=== PATIENT | male | born 1945 | race Two or more races ===

== ENCOUNTER 2018-06-29 19:58 | Inpatient (IN) | payer MEDICARE ==
[~2018-06-29] VITALS: Ht 170.2 cm; Wt 56.2 kg
[2018-06-29 20:30] VITALS: BP 148/85
[2018-06-29] MEDS ORDERED: ACETAMINOPHEN 325 MG TABLET PO PRN (20:30)
[2018-06-29] MEDS ORDERED: MAGNESIUM HYDROXIDE 30 ML UDC PO PRN (20:30)
[2018-06-29] MEDS ORDERED: MAG HYDROX/AL HYDROX/SIMETH 30 ML UDC PO PRN (20:30)
--- NOTE | 2018-06-29 20:30 | NUR ---
GPS ADMISSION NOTE, RECEIVED PATIENT FROM [facility]. PATIENT ARRIVED ON THIS UNIT AT 2030 VIA STRETCHER WITH 1 HOSPICE COMMUNITY LIAISON ESCORT. PATIENT ADMITTED VOLUNTARY. UPON FACE TO FACE ASSESSMENT PATIENT IS CURRENTLY LYING IN BED AWAKE, HAS NO S/S OR COMPLAINTS OF PAIN. PATIENT IS DISPLAYING NO S/S OF APPARENT DISTRESS. PATIENT BREATHING IS UNLABORED WITH EQUAL RISE AND FALL OF THE CHEST. PATIENT IS ALERT AND ORIENTATED X 3 ON ROOM AIR. PATIENT ASSISTED WITH TURING AND REPOSITIONING Q2HR AND PRN FOR COMFORT AND CIRCULATION. PATIENT HAS NO NEEDS AT THIS TIME. PATIENT IS NOTED TO BEING ANXIOUS, DISHEVELED, DISORGANIZED, COOPERATIVE, AND NEEDS REDIRECTION. PATIENT DENIES SUICIDE IDEATIONS AND HOMICIDAL IDEATIONS AT THIS TIME. PATIENT IS UNDER THE PSYCHIATRIC CARE OF DR. CASTAÑEDA AND THE MEDICAL CARE OF DR MEDRANO. PATIENT BELONGINGS WERE INVENTORIED AND CHECKED FOR CONTRABAND. ALL CONTRABAND REMOVED AND STORED IN PATIENT HALLWAY LOCKER. PATIENT ADVANCED DIRECTIVES PREFERENCE, IMMUNIZATIONS QUESTIONER, NECESSARY PAPERWORK, AND SKIN ASSESSMENT COMPLETED. PATIENT ORIENTATED TO ROOM, FLOOR, AND STAFF WITH ALL QUESTIONS ANSWERED. PATIENT EDUCATED ON THE USE OF THE CALL GUIDRY. PATIENT BED SIDE RAILS ARE UP X 2 FOR SAFETY. PATIENT BED IS LOCKED, LOW AND I WILL CONTINUE TO MONITOR THIS PATIENT Q 15 MIN WITH THE HELP OF STAFF TO MAINTAIN SAFETY.
[2018-06-29] MEDS ORDERED: LORA10TA7 PO (20:55)
[2018-06-29] MEDS ORDERED: AMLO5TAB9 PO (20:55)
[2018-06-29] MEDS ORDERED: OLAN5TAB3 PO (20:56)
[2018-06-29] MEDS ORDERED: HYDR-4384 PO (20:57)
[2018-06-29] MEDS ORDERED: ATOR40TA PO (20:58)
[2018-06-29] MEDS ORDERED: TRAZ-182 PO (20:58)
[2018-06-29] MEDS: HYDROCODONE/APAP 5/325MG 1 EACH TABLET PO PRN (22:16)
--- NOTE | 2018-06-29 22:16 | NUR ---
GPS RN NOTE, PATIENT HAS A COMPLAINT OF CHRONIC RIGHT HIP PAIN AT 4 OUT 10 ON THE PAIN SCALE AND IS REQUESTING NORCO AT THIS TIME. PATIENT VITAL SIGNS ARE STABLE. GAVE NORCO 5-325 1 TAB PO Q6HR PRN ORDERED. WILL REASSESS PAIN AND I WILL CONTINUE TO MONITOR THIS PATIENT.
[2018-06-30] MEDS: TEMAZEPAM 7.5 MG CAPSULE PO PRN (00:31)
--- NOTE | 2018-06-30 00:31 | NUR ---
GPS RN NOTE, PATIENT HAS A COMPLAINT OF NOT BEING ABLE TO SLEEP AND IS REQUESTING RESTORIL AT THIS TIME. PATIENT VTAL SIGNS ARE STABLE. GAVE RESTORIL 7.5MG PO HS PRN ORDERED. WILL REASSESS FOR INSOMNIA AND I WILL CONTINUE TOMONITOR THIS PATIENT.
[2018-06-30] MEDS ORDERED: Z GUARD REMEDY 2 OZ OINT TP PRN (03:00)
[2018-06-30] MEDS: LORAZEPAM 0.5 MG TABLET PO PRN (03:39)
--- NOTE | 2018-06-30 03:39 | NUR ---
GPS RN NOTE, PATIENT HAS A COMPLAINT OF FEELING ANXIOUS AND IS REQUESTING ATIVAN AT THIS TIME. PATIENT VITAL SIGNS ARE STABLE. GAVE ATIVAN 0.5MG PO Q6HR PRN ORDERED. WILL REASSESS FOR ANXIETY AND I WILL CONTINUE TO MONITOR THIS PATIENT.
[2018-06-30] MEDS ORDERED: POLY50DR OP (07:06)
[2018-06-30 07:11] LABS: BASOPHILS % (AUTO) 0.3 % (0.0-2.0); EOSINOPHILS % (AUTO) 3.3 % (0.0-6.0); HEMATOCRIT 43 % (39-51); LYMPHOCYTES # (AUTO) 1.6 /CMM (0.8-4.8); LYMPHOCYTES % (AUTO) 18.4 % (20.0-44.0); MEAN CORPUSCULAR HGB CONC 33 g/dl (31.0-36.0); MEAN CORPUSCULAR VOLUME 93 fL (80-96); MONOCYTES # (AUTO) 0.7 /CMM (0.1-1.30); MONOCYTES % (AUTO) 8.4 % (2.0-12.0); NEUTROPHILS % (AUTO) 69.6 % (43.0-81.0); PLATELET COUNT (AUTO) 207 /CMM (150-450); RED BLOOD CELL COUNT(AUTO) 4.54 MIL/uL (4.5-6.0); WHITE BLOOD COUNT (AUTO) 8.7 K/uL (4.3-11.0)
[2018-06-30 07:26] LABS: CALCIUM, SERUM 9.1 mg/dL (8.5-10.1); CARBON DIOXIDE 27 mmol/L (21-32); CHLORIDE 102 mmol/L (98-107); CREATININE 0.9 mg/dL (0.6-1.3); GLUCOSE 88 mg/dL (74-106); POTASSIUM 4.4 mmol/L (3.5-5.1); SODIUM SERUM 138 mmol/L (136-145); UREA NITROGEN, BLOOD 22 mg/dL (7-18)
[2018-06-30 07:29] LABS: CHOLESTEROL 173 mg/dL (<200); HDL CHOLESTEROL 66 mg/dL (40-60); LDL 104 mg/dL (0-99); TRIGLYCERIDES 45 mg/dL (30-150)
[2018-06-30 07:37] LABS: ALANINE AMINOTRANSFERASE 22 U/L (12-78); ALBUMIN 3.9 g/dL (3.4-5.0); ALKALINE PHOSPHATASE 75 U/L (46-116); ASPARTATE AMINOTRANSFERASE 19 U/L (15-37); BILIRUBIN,TOTAL 0.5 mg/dL (0.2-1.0); TOTAL PROTEIN, SERUM 7.8 g/dL (6.4-8.2)
[2018-06-30 08:00] VITALS: BP 143/85
[2018-06-30] MEDS: AMLODIPINE BESYLATE 5 MG TABLET PO SCH (08:42)
[2018-06-30] MEDS: NICOTINE PATCH (14MG) 14 MG PATCH.TD24 TD SCH (08:47)
[2018-06-30] MEDS: HYDROCODONE/APAP 5/325MG 1 EACH TABLET PO PRN (13:56)
[2018-06-30 16:00] VITALS: BP 138/81
[2018-06-30] MEDS: ATORVASTATIN 40 MG TABLET PO SCH (17:40)
[2018-06-30 20:00] VITALS: BP 118/66
[2018-06-30] MEDS: OLANZAPINE 5 MG TABLET PO SCH (20:57)
[2018-06-30] MEDS: TRAZODONE 50 MG TABLET PO SCH (21:18)
[2018-07-01 08:00] VITALS: BP 121/69
[2018-07-01 08:07] LABS: BILIRUBIN,URINE NEGATIVE (NEGATIVE); BLOOD, URINE NEGATIVE Ery/uL (NEGATIVE); COLOR,URINE YELLOW (YELLOW); KETONES,URINE NEGATIVE (NEGATIVE); LEUKOCYTE ESTERASE ,URINE NEGATIVE (NEGATIVE); NITRITE, URINE NEGATIVE (NEGATIVE); PROTEIN,URINE NEGATIVE (NEGATIVE); UGLUCOSE NEGATIVE (NEGATIVE); UROBILINOGEN,URINE 0.2 EU/dL (0.2)
[2018-07-01 08:11] LABS: APPEARANCE,URINE CLEAR (CLEAR)
[2018-07-01] MEDS: NICOTINE PATCH (14MG) 14 MG PATCH.TD24 TD SCH (09:42)
[2018-07-01] MEDS: AMLODIPINE BESYLATE 5 MG TABLET PO SCH (09:42)
--- NOTE | 2018-07-01 09:45 | NUR ---
WOUND CARE CONSULT: PT PRESENTS WITH REDNESS TO DISTAL TOES AND DISCOLORATION TO GREAT TOENAILS, PRESENT ON ADMISSION. RECOMMEND DPM CONSULT. PT STATES HAS DISCOMFORT WITH TOES. PT ALSO STATES HAS ITCHING IN GROIN/PERINEAL AREAS. SLIGHT REDNESS NOTED. RECOMMENDATIONS MADE AND DISCUSSED WITH NURSING STAFF FOR ANTIFUNGAL CREAM. PT IS AMBULATORY AND CONTINENT. WILL SEE PRN. IN AGREEMENT WITH PLAN OF CARE.
--- NOTE | 2018-07-01 11:30 | NUR ---
WALKING ABOUT WANTING TO REPORT THIS PERSON AND THAT PERSON,WRITING DOWN ALL HIS COMPLAINTS.VS STABLE.
--- NOTE | 2018-07-01 12:36 | NUR ---
INITIAL DISCHARGE PLAN: Patient may need placement. SW will help form a safe and proper discharge in collaboration with MD.
[2018-07-01] MEDS ORDERED: MISCELLANEOUS MED 1 EA EA XX ONE (13:00)
--- NOTE | 2018-07-01 13:27 | NUR ---
SW attempted to contact pts sister Jayde [phone], SW left voicemail for call back.
--- NOTE | 2018-07-01 13:30 | NUR ---
DR. WEISS IN TO SEE PT.
[2018-07-01] MEDS: OLANZAPINE 2.5 MG TABLET PO SCH (13:32)
[2018-07-01] MEDS: DIVALPROEX SODIUM 125 MG TABLET.DR PO SCH ×2 (13:32→17:07)
[2018-07-01] MEDS: LORAZEPAM 0.5 MG TABLET PO PRN (14:43)
--- NOTE | 2018-07-01 14:51 | NUR ---
GIVEN ATIVAN FOR AGITATION AND ANXIETY,0.5 MG PO.
[2018-07-01 16:00] VITALS: BP 131/80
[2018-07-01] MEDS: CLOTRIMAZOLE 1% 15 GM TUBE TP SCH ×2 (16:50)
[2018-07-01] MEDS: ATORVASTATIN 40 MG TABLET PO SCH (17:07)
--- NOTE | 2018-07-01 19:30 | NUR ---
GPS RN NOTE, RECEIVED PATIENT AWAKE AND IN BED, NO S/S OR COMPLAINTS OF PAIN AT THIS TIME. PATIENT IS DISPLAYING NO S/S OF APPARENT DISTRESS AT THIS TIME. PATIENT BREATHING IS UNLABORED WITH EQUAL RISE AND FALL OF THE CHEST. PATIENT IS ALERT AND ORIENTED X 2 ON ROOM AIR WITH A SPO2 OF 95%. PATIENT HAS PATIENT IS COMPLIANT WITH MEDICATION, COOPERATIVE, CONFUSED AT TIMES, ANXIOUS, DISORGANIZED, PARANOID, AND NEEDS REDIRECTION. PATIENT DENIES SUICIDE IDEATIONS AND HOMICIDAL IDEATIONS AT THIS TIME. PATIENT ASSISTED WITH TURNING AND REPOSITIONING Q 2HRS AND PRN FOR COMFORT AND CIRCULATION. PATIENT HAS NO NEEDS AT THIS TIME. PATIENT EDUCATED ON THE USE OF THE CALL GUIDRY. PATIENT BED SIDE RAILS UP X 2 FOR SAFETY, BED IS LOCKED, LOW, AND I WILL CONTINUE TO MONITOR AND MAINTAIN SAFETY Q15 MIN WITH THE HELP OF STAFF.
[2018-07-01 20:00] VITALS: BP 135/63
[2018-07-01] MEDS: OLANZAPINE 5 MG TABLET PO SCH (20:07)
[2018-07-01] MEDS: TRAZODONE 50 MG TABLET PO SCH (21:36)
[2018-07-02 08:00] VITALS: BP 130/82
[2018-07-02] MEDS: OLANZAPINE 2.5 MG TABLET PO SCH ×2 (08:04→12:49)
[2018-07-02] MEDS: NICOTINE PATCH (14MG) 14 MG PATCH.TD24 TD SCH (08:04)
[2018-07-02] MEDS: DIVALPROEX SODIUM 125 MG TABLET.DR PO SCH ×3 (08:04→17:00)
[2018-07-02] MEDS: AMLODIPINE BESYLATE 5 MG TABLET PO SCH (08:05)
[2018-07-02] MEDS: CLOTRIMAZOLE 1% 15 GM TUBE TP SCH ×4 (08:06→17:00)
--- NOTE | 2018-07-02 15:57 | NUR ---
SW received a call from pts sister Jayde [phone] and informed SW that pt has been homeless for a couple years and also requested pt be placed a SNF. SW informed her that pt will be referred to a local SNF and sister agreed. Sister lives in [place] and stated pt has not family in [place].
[2018-07-02 16:00] VITALS: BP 123/74
[2018-07-02] MEDS: ATORVASTATIN 40 MG TABLET PO SCH (17:00)
[2018-07-02] MEDS: HYDROCODONE/APAP 5/325MG 1 EACH TABLET PO PRN (19:41)
--- NOTE | 2018-07-02 19:49 | NUR ---
GPS-RN NOTES PATIENT C/O PAIN ON HIS RIGHT FOOT, 12/24. ADMINISTERED NORCO 5/325MG PO ORDERED. WILL CONTINUE TO MONITOR MEDICATION FOR EFFECTIVENESS.
[2018-07-02 20:09] VITALS: BP 126/75
[2018-07-02] MEDS: OLANZAPINE 5 MG TABLET PO SCH (20:44)
[2018-07-02] MEDS: TRAZODONE 50 MG TABLET PO SCH (21:13)
[2018-07-03 07:36] LABS: CARBON DIOXIDE 27 mmol/L (21-32); CHLORIDE 101 mmol/L (98-107); CREATININE 0.7 mg/dL (0.6-1.3); GLUCOSE 82 mg/dL (74-106); POTASSIUM 4.3 mmol/L (3.5-5.1); SODIUM SERUM 134 mmol/L (136-145); UREA NITROGEN, BLOOD 22 mg/dL (7-18)
[2018-07-03 08:00] VITALS: BP 138/64
[2018-07-03] MEDS: DIVALPROEX SODIUM 125 MG TABLET.DR PO SCH ×3 (08:33→16:23)
[2018-07-03] MEDS: OLANZAPINE 2.5 MG TABLET PO SCH ×2 (08:33→12:28)
[2018-07-03] MEDS: AMLODIPINE BESYLATE 5 MG TABLET PO SCH (08:34)
[2018-07-03] MEDS: NICOTINE PATCH (14MG) 14 MG PATCH.TD24 TD SCH (08:34)
[2018-07-03] MEDS: CLOTRIMAZOLE 1% 15 GM TUBE TP SCH ×4 (09:36→16:23)
--- NOTE | 2018-07-03 10:59 | NUR ---
FARZANEH faxed SNF referral to Ese Cleary at [facility] Address: [address], [place] [address] for review.
--- NOTE | 2018-07-03 11:10 | NUR ---
SW received a phone call from Ese Cleary at [facility] Address: [address] [place] [address] stating pt was accepted to the facility.
[2018-07-03 16:00] VITALS: BP 150/74
[2018-07-03] MEDS: ATORVASTATIN 40 MG TABLET PO SCH (17:19)
[2018-07-03 20:00] VITALS: BP 142/72
[2018-07-03] MEDS: OLANZAPINE 5 MG TABLET PO SCH (20:38)
[2018-07-03] MEDS: TRAZODONE 50 MG TABLET PO SCH (21:31)
[2018-07-03] MEDS: TEMAZEPAM 7.5 MG CAPSULE PO PRN (23:11)
[2018-07-04 08:00] VITALS: BP 142/76
[2018-07-04] MEDS: AMLODIPINE BESYLATE 5 MG TABLET PO SCH (08:47)
[2018-07-04] MEDS: DIVALPROEX SODIUM 125 MG TABLET.DR PO SCH ×3 (08:47→16:44)
[2018-07-04] MEDS: NICOTINE PATCH (14MG) 14 MG PATCH.TD24 TD SCH (08:47)
[2018-07-04] MEDS: OLANZAPINE 2.5 MG TABLET PO SCH ×2 (08:47→12:25)
[2018-07-04] MEDS: CLOTRIMAZOLE 1% 15 GM TUBE TP SCH ×4 (08:49→16:44)
[2018-07-04] MEDS: LORAZEPAM 0.5 MG TABLET PO PRN (10:25)
--- NOTE | 2018-07-04 10:39 | NUR ---
GPS/RN-NOTES NOTED PATIENT PACING IN THE HALLWAY FOCUS ON CALLING USING THE HOSPITAL PHONE. PATIENT ALSO AND THREATENING AND ACCUSING STAFF OF MISTREATING AND ABUSING HIM. STATED" I WILL REPORT ALL THE STAFF OF MISTREATING AND ABUSING ME". CHARGE NURSE AWARE OF PATIENT BEHAVIOR. REDIRECTED PATIENT AND OFFERED ATIVAN AND AGREED. ATIVAN 0.5MG P.O GIVEN PRN ORDER. WILL CONT. MONITORING FOR SAFETY AND BEHAVIOR..
[2018-07-04 16:05] VITALS: BP 135/71
[2018-07-04] MEDS: ATORVASTATIN 40 MG TABLET PO SCH (17:11)
[2018-07-04] MEDS: OLANZAPINE 5 MG TABLET PO SCH (20:23)
[2018-07-04 20:32] VITALS: BP 117/68
[2018-07-04] MEDS: TRAZODONE 50 MG TABLET PO SCH (21:42)
[2018-07-05 07:01] LABS: CALCIUM, SERUM 8.7 mg/dL (8.5-10.1); CARBON DIOXIDE 24 mmol/L (21-32); CHLORIDE 104 mmol/L (98-107); CREATININE 0.8 mg/dL (0.6-1.3); GLUCOSE 82 mg/dL (74-106); POTASSIUM 4.5 mmol/L (3.5-5.1); SODIUM SERUM 138 mmol/L (136-145); UREA NITROGEN, BLOOD 26 mg/dL (7-18)
[2018-07-05 08:00] VITALS: BP 140/65
[2018-07-05] MEDS: AMLODIPINE BESYLATE 5 MG TABLET PO SCH (08:33)
[2018-07-05] MEDS: NICOTINE PATCH (14MG) 14 MG PATCH.TD24 TD SCH (08:33)
[2018-07-05] MEDS: DIVALPROEX SODIUM 125 MG TABLET.DR PO SCH ×3 (08:33→18:40)
[2018-07-05] MEDS: OLANZAPINE 2.5 MG TABLET PO SCH ×2 (08:34→14:15)
[2018-07-05] MEDS: CLOTRIMAZOLE 1% 15 GM TUBE TP SCH ×4 (08:39→18:41)
[2018-07-05] MEDS: HYDROCODONE/APAP 5/325MG 1 EACH TABLET PO PRN (08:41)
--- NOTE | 2018-07-05 08:41 | NUR ---
RN NOTES ADMINISTERED NARCO 5/325 MG PO PRN FOR GENERALIZED PAIN 11/24 PER PATIENT REQUEST, V/S TAKEN BP-140/65, P-59, ENCOURAGED TO INCREASE FLUID INTAKE, CONTINUED MONITORING.
[2018-07-05 15:53] VITALS: BP 140/72
[2018-07-05] MEDS: ATORVASTATIN 40 MG TABLET PO SCH (18:40)
--- NOTE | 2018-07-05 19:06 | NUR ---
RN NOTES ADMINISTERED MILK OF MAGNESIA 30 ML PO PRN FOR CONSTIPATION PER PATIENT REQUEST, CONTINUED MONITORING. ENDORSED ONCOMING NURSE FOLLOW UP.
[2018-07-05 20:00] VITALS: BP 144/69
[2018-07-05] MEDS: OLANZAPINE 5 MG TABLET PO SCH (20:34)
[2018-07-05] MEDS: TRAZODONE 50 MG TABLET PO SCH (21:21)
[2018-07-05] MEDS: TEMAZEPAM 7.5 MG CAPSULE PO PRN (22:38)
[2018-07-06 08:00] VITALS: BP 111/59
[2018-07-06] MEDS: OLANZAPINE 2.5 MG TABLET PO SCH ×2 (09:05→12:24)
[2018-07-06] MEDS: AMLODIPINE BESYLATE 5 MG TABLET PO SCH (09:05)
[2018-07-06] MEDS: DIVALPROEX SODIUM 125 MG TABLET.DR PO SCH ×5 (09:06→21:25)
[2018-07-06] MEDS: CLOTRIMAZOLE 1% 15 GM TUBE TP SCH ×4 (09:06→16:51)
[2018-07-06] MEDS: NICOTINE PATCH (14MG) 14 MG PATCH.TD24 TD SCH (09:06)
[2018-07-06 16:00] VITALS: BP 135/84
[2018-07-06] MEDS: ATORVASTATIN 40 MG TABLET PO SCH (17:18)
[2018-07-06] MEDS: OLANZAPINE 5 MG TABLET PO SCH (20:00)
[2018-07-06 21:20] VITALS: BP 126/62
[2018-07-06] MEDS: TRAZODONE 50 MG TABLET PO SCH (21:25)
[2018-07-07 08:00] VITALS: BP 157/79
[2018-07-07] MEDS: NICOTINE PATCH (14MG) 14 MG PATCH.TD24 TD SCH (08:24)
[2018-07-07] MEDS: OLANZAPINE 2.5 MG TABLET PO SCH ×2 (08:24→13:56)
[2018-07-07] MEDS: AMLODIPINE BESYLATE 5 MG TABLET PO SCH (08:25)
[2018-07-07] MEDS: CLOTRIMAZOLE 1% 15 GM TUBE TP SCH ×4 (08:26→17:46)
[2018-07-07] MEDS: DIVALPROEX SODIUM 125 MG TABLET.DR PO SCH ×4 (08:31→21:15)
[2018-07-07 16:00] VITALS: BP 140/77
[2018-07-07] MEDS: ATORVASTATIN 40 MG TABLET PO SCH (17:45)
[2018-07-07 19:51] VITALS: BP 129/76
[2018-07-07] MEDS: OLANZAPINE 5 MG TABLET PO SCH (20:30)
[2018-07-07] MEDS: TRAZODONE 50 MG TABLET PO SCH (21:15)
[2018-07-08 08:00] VITALS: BP 152/82
[2018-07-08 08:10] LABS: CALCIUM, SERUM 9.3 mg/dL (8.5-10.1); CARBON DIOXIDE 27 mmol/L (21-32); CHLORIDE 103 mmol/L (98-107); CREATININE 0.7 mg/dL (0.6-1.3); GLUCOSE 87 mg/dL (74-106); POTASSIUM 4.5 mmol/L (3.5-5.1); SODIUM SERUM 139 mmol/L (136-145); UREA NITROGEN, BLOOD 23 mg/dL (7-18)
[2018-07-08] MEDS: OLANZAPINE 2.5 MG TABLET PO SCH ×2 (10:26→13:27)
[2018-07-08] MEDS: DIVALPROEX SODIUM 125 MG TABLET.DR PO SCH ×4 (10:27→21:34)
[2018-07-08] MEDS: AMLODIPINE BESYLATE 5 MG TABLET PO SCH (10:27)
[2018-07-08] MEDS: NICOTINE PATCH (14MG) 14 MG PATCH.TD24 TD SCH (10:27)
[2018-07-08] MEDS: CLOTRIMAZOLE 1% 15 GM TUBE TP SCH ×4 (10:27→17:21)
--- NOTE | 2018-07-08 10:56 | NUR ---
RN NOTE: Patient's mood is very up and down. Patient is threatening to staff. Very agitated and often hard to redirect. Patient is accusatory and states staff does not do anything for him.
[2018-07-08 16:10] VITALS: BP 119/67
[2018-07-08] MEDS: ATORVASTATIN 40 MG TABLET PO SCH (18:59)
[2018-07-08] MEDS: OLANZAPINE 5 MG TABLET PO SCH (19:31)
[2018-07-08 20:17] VITALS: BP 123/65
[2018-07-08] MEDS: TRAZODONE 50 MG TABLET PO SCH (21:34)
[2018-07-08] MEDS: TEMAZEPAM 7.5 MG CAPSULE PO PRN (23:55)
[2018-07-09 08:00] VITALS: BP 145/79
[2018-07-09] MEDS: AMLODIPINE BESYLATE 5 MG TABLET PO SCH (09:19)
[2018-07-09] MEDS: NICOTINE PATCH (14MG) 14 MG PATCH.TD24 TD SCH (09:19)
[2018-07-09] MEDS: CLOTRIMAZOLE 1% 15 GM TUBE TP SCH ×4 (09:19→16:28)
[2018-07-09] MEDS: DIVALPROEX SODIUM 125 MG TABLET.DR PO SCH ×4 (09:19→22:08)
[2018-07-09] MEDS: OLANZAPINE 2.5 MG TABLET PO SCH ×2 (09:20→13:30)
--- NOTE | 2018-07-09 12:08 | NUR ---
FARZANEH contacted pts sister Jayde [phone] and left voicemail inform her pt was discharging tomorrow 07/10/18 to [facility].
[2018-07-09 16:00] VITALS: BP 137/75
[2018-07-09] MEDS: ATORVASTATIN 40 MG TABLET PO SCH (16:31)
[2018-07-09 20:20] VITALS: BP 131/65
[2018-07-09] MEDS: OLANZAPINE 5 MG TABLET PO SCH (20:20)
[2018-07-09] MEDS: TRAZODONE 50 MG TABLET PO SCH (22:08)
[2018-07-10 08:00] VITALS: BP 153/71
[2018-07-10] MEDS: NICOTINE PATCH (14MG) 14 MG PATCH.TD24 TD SCH (08:55)
[2018-07-10] MEDS: OLANZAPINE 2.5 MG TABLET PO SCH ×2 (08:55→12:33)
[2018-07-10] MEDS: AMLODIPINE BESYLATE 5 MG TABLET PO SCH (08:56)
[2018-07-10] MEDS: DIVALPROEX SODIUM 125 MG TABLET.DR PO SCH ×4 (08:57→20:15)
[2018-07-10] MEDS: CLOTRIMAZOLE 1% 15 GM TUBE TP SCH ×4 (08:58→17:32)
--- NOTE | 2018-07-10 10:02 | NUR ---
DR. CASTAÑEDA GAVE AN ORDER TO D/C HOLD AND D/C TO [facility] AND TO FOLLOW UP WITH PSYCH AND MEDICAL DOCTORS. PT. TO CONTINUE ON MEDS INCLUDING PRN.
--- NOTE | 2018-07-10 13:10 | NUR ---
FARZANEH received a call from Ese Cleary at [facility] Address: [address] [place] [address] stating facility does not have a bed available on this present day and requested pt be discharged tomorrow Saturday07/11/18. FARZANEH consulted with Psychiatrist Dr. Young who approved pt be discharged tomorrow to [facility].
--- NOTE | 2018-07-10 13:35 | NUR ---
FARZANEH contacted pts sister Jayde [phone] and left voicemail inform her pt was discharging Saturday07/11/18 to [facility]
--- NOTE | 2018-07-10 13:36 | NUR ---
DR. CASTAÑEDA RESCINDED THE DISCHARGE ORDER BECAUSE THE FACILITY DOESN'T HAVE A BED UNTIL TOMORROW. CALLED HER SISTER TOR AT [phone] AND LEFT A MESSAGE.
[2018-07-10 16:02] VITALS: BP 149/82
[2018-07-10] MEDS: ATORVASTATIN 40 MG TABLET PO SCH (17:32)
--- NOTE | 2018-07-10 18:04 | NUR ---
RN NOTES PATIENT REFUSED TAKING DEPAKOTE DESPITE OF EXPLANATION OF RISK AND BENEFITS.
[2018-07-10] MEDS: TRAZODONE 50 MG TABLET PO SCH (20:15)
[2018-07-10] MEDS: OLANZAPINE 5 MG TABLET PO SCH (20:15)
[2018-07-11 08:00] VITALS: BP 134/86
[2018-07-11] MEDS: NICOTINE PATCH (14MG) 14 MG PATCH.TD24 TD SCH (08:03)
[2018-07-11] MEDS: OLANZAPINE 2.5 MG TABLET PO SCH ×2 (08:04→12:27)
[2018-07-11] MEDS: DIVALPROEX SODIUM 125 MG TABLET.DR PO SCH ×3 (08:04→16:19)
[2018-07-11] MEDS: AMLODIPINE BESYLATE 5 MG TABLET PO SCH (08:04)
[2018-07-11] MEDS: HYDROCODONE/APAP 5/325MG 1 EACH TABLET PO PRN (08:34)
[2018-07-11] MEDS: CLOTRIMAZOLE 1% 15 GM TUBE TP SCH ×4 (08:47→16:19)
--- NOTE | 2018-07-11 12:34 | NUR ---
DR. CASTAÑEDA GAVE AN ORDER TO D/C HOLD AN D/C TO [facility] AND TO FOLLOW UP WITH PSYCH AND MEDICAL DOCTORS AND TO CONTINUE SAME MEDS INCLUDING PRN. DR. MEDRANO MADE AWARE OF THE DISCHARGE AND RECONCILED MEDS. BELONGINGS READY, PICTURES TAKEN FOR THE SKIN ISSUES AND PT. SIGNED THE DISCHARGE PAPERS. PT. WITHOUT DISTRESS, DENIES SUICIDAL AND HOMICIDAL AND STABLE DISCHARGE.
--- NOTE | 2018-07-11 13:51 | NUR ---
DISCHARGE NOTE: Pt will be discharging at 5:00pm to [facility] ([facility] Address: [address] [place] [address] via [facility] ambulance trip #[id number]. Pts sister Jayde [phone] has been notified and agreed with discharge plan. Pts mood is euthymic with congruent affect. Pt denied suicidal/homicidal ideations and denied visual/auditory hallucinations. Pt will be under the care of Psychiatrist: Dr. Elizabeth Young [address], [place] [address] [phone] and Import Export Coordinator: Dr. Harpreet Gutierrez Address: [address], [place] [address] . The multidisciplinary exitcare form was done, printed, signed, and given to the patient.
--- NOTE | 2018-07-11 15:35 | NUR ---
REPORT GIVEN TO CLARKE OVER THE FACILITY.
[2018-07-11 16:00] VITALS: BP 136/69
[2018-07-11] MEDS: ATORVASTATIN 40 MG TABLET PO SCH (17:08)
--- NOTE | 2018-07-11 18:15 | NUR ---
PT. LEFT THE UNIT VIA AMBULANCE AND TRANSPORTED VIA A GURNEY WITH BELONGINGS. LEFT WITHOUT DISTRESS AND ON STABLE CONDITION. V/S TAKEN: BP145/81, WI 76, RR 18, TEMP 98.0 AND OXYGEN SAT 96%.
== END 2018-07-11 18:15 | DRG 885 ==
LOC: GPS 19:58
PROVIDERS: ADMIT Psychiatry & Neurology Psychosomatic Medicine; ATTEND Psychiatry & Neurology Psychosomatic Medicine
DX: F29 Unspecified psychosis not due to a substance or known physiological condition (principal); N17.0 Acute kidney failure with tubular necrosis; F11.20 Opioid dependence, uncomplicated; F25.9 Schizoaffective disorder, unspecified; F32.9 Major depressive disorder, single episode, unspecified; I10 Essential (primary) hypertension; E78.5 Hyperlipidemia, unspecified; G89.29 Other chronic pain; M54.9 Dorsalgia, unspecified; F19.21 Other psychoactive substance dependence, in remission; B35.1 Tinea unguium; B35.3 Tinea pedis
CPT/HCPCS: 36415; 80048-TC; 80053-TC; 80061-TC; 80164-TC; 81000-TC; 85025-TC; 87081-TC